=== PATIENT | female | born 1930 | race Caucasian/White ===

== ENCOUNTER → 2017-02-11 | Outpatient (CLI) | payer MEDICARE, OTHER ==
--- NOTE | 2017-02-11 11:18 | DI ---
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 Right-sided volume loss again noted. No pneumothorax seen. Left lung is clear. Heart size and pulmonary vascularity are within normal limits. Left-sided port catheter. Impression: Stable appearance of the chest. .
== END ==
LOC: IMA 09:44
PROVIDERS: ATTEND Internal Medicine Hematology & Oncology
DX: C34.11 Malignant neoplasm of upper lobe, right bronchus or lung (principal); C34.31 Malignant neoplasm of lower lobe, right bronchus or lung; C77.1 Secondary and unspecified malignant neoplasm of intrathoracic lymph nodes; C78.01 Secondary malignant neoplasm of right lung; C78.02 Secondary malignant neoplasm of left lung